=== PATIENT | female | born 1955 | race Caucasian/White ===

== ENCOUNTER 2018-03-10 14:42 | Emergency (ER) | payer OTHER ==
[~2018-03-10] VITALS: Ht 167.6 cm; Wt 100.2 kg
[~2018-03-10 14:42] MED LIST: HYZAAR 100-251 UDTAB PO; METFORMIN HCL500 MG; NORVASC5 MG PO; SINGULAIR4 MG PO
== END 2018-03-10 19:54 | disposition home or self-care (01) ==
LOC: ER 14:42
DX: J45.901 Unspecified asthma with (acute) exacerbation (principal)

== ENCOUNTER 2019-04-02 12:11 | Emergency (ER) | payer OTHER ==
[~2019-04-02] VITALS: Ht 167.6 cm; Wt 98.9 kg
[2019-04-02] MEDS ORDERED: ADVAIR HFA 115/12 GM (12:42)
== END 2019-04-02 14:10 | disposition home or self-care (01) ==
LOC: ER 12:11
DX: B34.9 Viral infection, unspecified (principal)

== ENCOUNTER 2021-04-12 10:28 | Emergency (ER) | payer OTHER ==
[~2021-04-12] VITALS: Ht 167.6 cm; Wt 90.3 kg
[~2021-04-12 10:28] MED LIST changes: +ADVAIR HFA 115/12 GM
== END 2021-04-12 18:27 | disposition home or self-care (01) ==
LOC: ER 10:28
DX: B34.9 Viral infection, unspecified (principal); Z11.52 Encounter for screening for COVID-19